=== PATIENT | male | born 1980 | race Two or more races ===

== ENCOUNTER 2022-09-24 11:09 | Emergency (ER) | payer SELFPAY ==
[2022-09-24 13:50] LABS: ESTIMATED GFR 122 mL/min (>60)
== END 2022-09-24 16:00 | disposition home or self-care (01) ==
LOC: JP.ED 11:09
DX: E11.9 Type 2 diabetes mellitus without complications (principal)
CPT/HCPCS: 36415; 36600; 80053; 82009; 82803; 85025; 99283